=== PATIENT | female | born 1945 | race American Indian/Alaskan Native ===

== ENCOUNTER 2016-10-15 12:35 | Outpatient (CLI) | payer MEDICARE ==
[2016-10-15 12:51] LABS: Basophils % (Auto) 1.8 % (0.0-1.8); Eosinophils % (Auto) 4.3 % (0.0-4.3); Hematocrit 25.8 % (30.3-42.9); Hemoglobin 8.1 gm/dl (10.1-14.3); Mean Corpuscular HGB Conc 32 % (30-34); Mean Corpuscular Hemoglobin 31 pg (28-32); Mean Corpuscular Volume 98 fl (79-97); Platelet Count 214 K/mm3 (140-440); Red Blood Count 2.62 M/mm3 (3.65-5.03); White Blood Count 3.9 K/mm3 (4.5-11.0)
[2016-10-15 12:52] LABS: Red Cell Distribution Width 22.7 % (13.2-15.2)
== END 2016-10-15 12:36 | disposition home or self-care (01) ==
LOC: LABHHL 12:35
PROVIDERS: ATTEND Internal Medicine
DX: E11.22 Type 2 diabetes mellitus with diabetic chronic kidney disease (principal); E11.40 Type 2 diabetes mellitus with diabetic neuropathy, unspecified; N18.3 Chronic kidney disease, stage 3 (moderate); K25.4 Chronic or unspecified gastric ulcer with hemorrhage; B37.9 Candidiasis, unspecified
CPT/HCPCS: 36415; 85025